=== PATIENT | female | born 1955 | race Caucasian/White ===

== ENCOUNTER → 2017-03-07 | Outpatient (CLI) | payer BC ==
[~2017-03-07] MED LIST: CELEBREX 200MG200 MG PO; COREG 25MG25 MG/TAB PO; COUMADIN4 MG PO; FOLIC ACID 40400 MCG PO; FOLIC ACID0.4 MG PO; IRON324 M1 PO; MOBIC 7.5MG7.5 MG PO; ROXICODONE 55 MG/TAB PO; THERAPEUTIC VIT1 CAP PO; ULTRAM 50MG TAB50 MG PO; VITAMIN C500 MG PO
== END ==
LOC: COL.VAS 09:46
DX: I34.1 Nonrheumatic mitral (valve) prolapse (principal)

== ENCOUNTER → 2017-09-12 | Outpatient (CLI) | payer BC | LOC: COL.RAD 10:14 | DX: N95.0 Postmenopausal bleeding (principal) ==

== ENCOUNTER 2017-11-08 06:52 | Day surgery (SDC) | payer BC ==
[2017-11-08] VITALS (13 sets, daily range): BP systolic 97–131; BP diastolic 40–79; PULSE 61–67; TEMP 98.1
[~2017-11-08] VITALS: Ht 151.1 cm; Wt 113.1 kg
[2017-11-08 07:19] LABS: HEMOGLOBIN 11.7 g/dl (12.5-16.0); MEAN CELL VOLUME 90 fl (80.0-100.0); MEAN CORPUSCULAR HEMOGLOBIN 31 pg (27.0-31.0); MEAN CORPUSCULAR HGB CONC 34 g/dl (33.0-37.0); MEAN PLATELET VOLUME 10.4 fl (7.4-10.4); PLATELET COUNT 201 K/mm3 (130-400); RED BLOOD COUNT 3.82 M/mm3 (4.10-5.30); REDCELL DISTRIBUTION WIDTH-CV 14.1 % (11.5-14.5)
[2017-11-08 07:24] LABS: HEMATOCRIT 34.5 % (37.0-47.0)
[2017-11-08 07:26] LABS: PROTHROMBIN TIME 11.2 SECONDS (9.7-12.8)
[2017-11-08 07:28] LABS: CREATININE, serum 0.94 mg/dL (0.52-1.25); POTASSIUM 4.6 mmol/L (3.4-5.0)
[2017-11-08] MEDS ORDERED: LIPITOR 10MG10 MG PO (08:06)
[2017-11-08] MEDS ORDERED: PRINIVIL20 MG PO (08:07)
[2017-11-08] MEDS ORDERED: GLUCOPHAGE XR500 M1 PO (08:08)
[2017-11-08] MEDS ORDERED: MOBIC 7.5MG7.5 MG PO (08:08)
[2017-11-08] MEDS ORDERED: TYLENOL 500MG500 MG PO (08:09)
== END 2017-11-08 14:49 | disposition home or self-care (01) ==
LOC: COL.CAR 06:52
PROVIDERS: Internal Medicine Cardiovascular Disease
DX: R94.39 Abnormal result of other cardiovascular function study (principal); R06.02 Shortness of breath; G47.33 Obstructive sleep apnea (adult) (pediatric); I10 Essential (primary) hypertension; M79.89 Other specified soft tissue disorders
CPT/HCPCS: J2250; J3010; Q9967

== ENCOUNTER → 2018-04-17 | Outpatient (CLI) | payer BC ==
[~2018-04-17] MED LIST changes: +GLUCOPHAGE XR500 M1 PO; +LIPITOR 10MG10 MG PO; +PRINIVIL20 MG PO; +TYLENOL 500MG500 MG PO
== END ==
LOC: MC.RAD 10:40
DX: Z12.31 Encounter for screening mammogram for malignant neoplasm of breast (principal)

== ENCOUNTER → 2018-09-27 | Outpatient (CLI) | payer BC | LOC: COL.RAD 08:40 | DX: K44.9 Diaphragmatic hernia without obstruction or gangrene (principal); K22.8 Other specified diseases of esophagus ==

== ENCOUNTER → 2019-05-01 | Outpatient (CLI) | payer BC | LOC: MC.RAD 13:53 | DX: Z12.31 Encounter for screening mammogram for malignant neoplasm of breast (principal) ==

== ENCOUNTER 2019-05-30 09:30 | Outpatient (RCR) | payer BC | END 2019-08-12 | disposition home or self-care (01) | LOC: WSPT | DX: M25.561 Pain in right knee (principal); Z98.890 Other specified postprocedural states; Z96.641 Presence of right artificial hip joint ==

== ENCOUNTER → 2020-05-07 | Outpatient (CLI) | payer MEDICARE, BC | LOC: MC.RAD 10:45 | DX: Z12.31 Encounter for screening mammogram for malignant neoplasm of breast (principal) ==

== ENCOUNTER → 2020-11-24 | Outpatient (CLI) | payer MEDICARE, BC ==
[~2020-11-24] MED LIST changes: +ATIVAN 1MG T1 MG/TAB PO; +B-121000 MCG PO; +CALCIUM 600 PLU1 TAB PO; +LIQUIFILM TEARS15 ML OU; +NORCO 325 MG-7.1 TAB PO; +NYSTATIN100000 U/1 TOP; +PROTONIX 40MG T40 MG PO; +ROXANOL 20MG20 MG/ML PO; -THERAPEUTIC VIT1 CAP PO; +TRANSDERM-0.5 MG/21 TD; +ZOFRAN 4MG T4 MG/TAB PO; +ZOFRAN ODT4 MG PO
== END ==
LOC: COL.RAD 07:45
DX: D72.829 Elevated white blood cell count, unspecified (principal); M47.816 Spondylosis without myelopathy or radiculopathy, lumbar region; R63.4 Abnormal weight loss; N63.31 Unspecified lump in axillary tail of the right breast; J84.10 Pulmonary fibrosis, unspecified; R16.0 Hepatomegaly, not elsewhere classified; R59.0 Localized enlarged lymph nodes; N20.0 Calculus of kidney; R19.09 Other intra-abdominal and pelvic swelling, mass and lump; Z90.710 Acquired absence of both cervix and uterus; Z85.42 Personal history of malignant neoplasm of other parts of uterus
CPT/HCPCS: Q9967

== ENCOUNTER 2020-12-11 17:48 | Inpatient (IN) | payer MEDICARE, BC ==
[~2020-12-11] VITALS: Ht 149.9 cm; Wt 109.5 kg
[~2020-12-11 17:48] MED LIST changes: -ATIVAN 1MG T1 MG/TAB PO; -LIQUIFILM TEARS15 ML OU; -NORCO 325 MG-7.1 TAB PO; -NYSTATIN100000 U/1 TOP; -PROTONIX 40MG T40 MG PO; -ROXANOL 20MG20 MG/ML PO; -TRANSDERM-0.5 MG/21 TD; -ZOFRAN 4MG T4 MG/TAB PO; -ZOFRAN ODT4 MG PO
[2020-12-11 18:06] LABS: HEMATOCRIT 40.6 % (37.0-47.0); HEMOGLOBIN 12.5 g/dl (12.5-16.0); MEAN CELL VOLUME 93 fl (80.0-100.0); MEAN CORPUSCULAR HEMOGLOBIN 29 pg (27.0-31.0); MEAN CORPUSCULAR HGB CONC 31 g/dl (33.0-37.0); MEAN PLATELET VOLUME 10.2 fl (7.4-10.4); PLATELET COUNT 282 K/mm3 (130-400); RED BLOOD COUNT 4.36 M/mm3 (4.10-5.30); REDCELL DISTRIBUTION WIDTH-CV 19.3 % (11.5-14.5)
[2020-12-11 18:16] LABS: ALBUMIN 3.1 gm/dL (3.5-5.0); BILIRUBIN,TOTAL 1.1 mg/dL (0.0-1.0); CALCIUM 9.6 mg/dL (8.4-10.2); CREATININE, serum 0.8 (0.52-1.25); POTASSIUM 5.1 mmol/L (3.4-5.0); TOTAL PROTEIN 7.4 gm/dL (6.4-8.2)
[2020-12-11 18:32] LABS: C-REACTIVE PROTEIN 15.4 mg/dL (0.0-0.9)
[2020-12-11 19:05] LABS: BAND 11 % (0-10); LYMPHOCYTE 8 % (20.0-51.0); NEUTROPHILS 81 % (42.0-75.2)
[2020-12-11 19:06] LABS: ANISOCYTOSIS 3+; PLATELET ESTIMATE NORMAL (NORMAL); POLYCHROMASIA 1+
[2020-12-11 19:07] LABS: OVALOCYTES 1+
[2020-12-12] VITALS (247 sets, daily range): BP systolic 70–143; BP diastolic 36–90; PULSE 62–109; TEMP 97.5–98.5; O2SAT 94–99
--- NOTE | 2020-12-12 00:43 | NUR ---
Patient arrived medical floor room 356 via hospital bed around 2300 from ER. Patient alert and oriented. Patient denies any pain, SOB/dyspnea, N/V, headache, dizziness, or diarrhea. Patient reports feeling very weak and may need walker for ambulation. Walker and bed-side commode provided. Assisted patient to use bed-side commode at this time. 1 person assist needed for transfer and ambulation. Oriented patient to the room. NS currently running at 125ml/hr. Call light within reach. Will continue to monitor.
[2020-12-12] MEDS ORDERED: NORCO 325 MG-7.1 TAB PO (02:38)
[2020-12-12] MEDS ORDERED: ZOFRAN 4MG T4 MG/TAB PO (02:39)
[2020-12-12] MEDS ORDERED: NYSTATIN100000 U/1 TOP (02:39)
[2020-12-12] MEDS ORDERED: PROTONIX 40MG T40 MG PO (02:39)
[2020-12-12 03:41] LABS: COLLECTION METHOD CLEAN CATCH
[2020-12-12 03:52] LABS: MUCOUS Present /lpf; PH 5 (5-8); SQUAMOUS EPITHELIAL 0-2 /hpf; URINE APPEARANCE Clear; URINE BACTERIA None Seen /hpf; URINE BILIRUBIN Negative (NEGATIVE); URINE BLOOD 2+ (NEGATIVE); URINE COLOR Yellow; URINE GLUCOSE Negative (NEGATIVE); URINE KETONE Trace (NEGATIVE); URINE LEUKOCYTE ESTERASE Negative (NEGATIVE); URINE NITRATE Negative (NEGATIVE); URINE PROTEIN(semi-quant) Negative (NEGATIVE); URINE RBC >50 /hpf; URINE UROBILINOGEN Negative (NEGATIVE)
--- NOTE | 2020-12-12 06:07 | NUR ---
Patient awake most of the night. Patient reports intermittent nausea but denies need for nausea medicine. No vomiting noted. PRN pain meds given for c/o lower back pain. Assisted patient to use bedside commode Q 1-2hrs. Call light within reach. Will continue to monitor.
[2020-12-12 08:33] LABS: MEAN CELL VOLUME 94 fl (80.0-100.0); MEAN CORPUSCULAR HGB CONC 31 g/dl (33.0-37.0); MEAN PLATELET VOLUME 10.5 fl (7.4-10.4); PLATELET COUNT 231 K/mm3 (130-400); RED BLOOD COUNT 3.42 M/mm3 (4.10-5.30); REDCELL DISTRIBUTION WIDTH-CV 19.4 % (11.5-14.5)
[2020-12-12 08:38] LABS: INR 1.4 (0.8-3.0); PROTHROMBIN TIME 15.3 SECONDS (9.7-12.8)
[2020-12-12 08:46] LABS: CALCIUM 8.5 mg/dL (8.4-10.2); CREATININE, serum 0.72 (0.52-1.25); HEMATOCRIT 32.3 % (37.0-47.0); HEMOGLOBIN 9.9 g/dl (12.5-16.0); MEAN CORPUSCULAR HEMOGLOBIN 29 pg (27.0-31.0); POTASSIUM 4.4 mmol/L (3.4-5.0)
--- NOTE | 2020-12-12 08:49 | NUR ---
Patient laying in bed when this RN entered the room. IV pump was going off and fluids were completed. While this RN was completing the shift assessment, PT came in to work with the patient. This RN stayed in the room to see how the patient did with mobility. Patient did have difficulties sitting up on her own, but did very well standing up and ambulating w/ the assistance of PT. Patient had no c/o pain at this time.
[2020-12-12 11:11] LABS: ANISOCYTOSIS 2+; BAND 4 % (0-10); HYPOCHROMIA 3+; LYMPHOCYTE 6 % (20.0-51.0); NEUTROPHILS 84 % (42.0-75.2)
[2020-12-12 11:12] LABS: PLATELET ESTIMATE NORMAL (NORMAL); TOXIC GRANULATION PRESENT
--- NOTE | 2020-12-12 12:11 | NUR ---
Sw met with the pt who stated her preference to return home once medically stable. The pt is independent on all ADLS, but does use a cane,walker and CPAP. The pt is a and her next of kin,SWATHI, is her son, Raisa ([phone]). but her person to contact is Sharmin, sister( [phone]). Her PCP is Francis Levine and gets her medications from [facility]. The pt informed Beth that she has a meeting with ever Suazo at 1pm. The pt has cancer and she informed the Sw that the dr thinks she has a month left to live. So she is not sure about hospice at this time. Her son is coming up tonight and they will chat about care of plan. Pallitive consult called. The pt would like me to make a referral to [facility] for PT. No other needs stated at this time. Sw to await furthe recommendations and follow up as needed. D/C: Home vs hospice
--- NOTE | 2020-12-12 13:14 | NUR ---
Interior Wall Assembler offered prayer and support with patient.
--- NOTE | 2020-12-12 13:25 | NUR ---
This RN was notified by the patient's assigned PCT that her blood pressure was low, 81/46. BP was retaken and it was 70/36. This RN did a manual BP and got 62/44. Provider was notified and a 500mL bolus was ordered. BP has been being taken every 10minutes and continues to remain low; 73/31, 73/34, 72/35, 81/39, 70/36, 65/34, and 79/31. Provider was notified that pressures are not coming up after the first bolus of 500mL and a 2nd bolus was ordered and initiated. Patient will remain on 10minutes BPs.
--- NOTE | 2020-12-12 14:58 | NUR ---
PT TRANSFERED DOWN FROM THE MEDICAL FLOOR FOR HYPOTENTION. PT TRANSFERED TO BED. PT PLACE ON MONITORS. PT SHOWING SR IN THE 60'S. PT IS AXOX4 BUT SLEEPY. BP IN THE 80'S. BOLUS RUNNING. SPOKE WITH WHO IS ON THE WAY IN FOR CENTRAL LINE PLACEMENT. PT ORIENTED TO ROOM AND FLOOR. PT INSTRUCTED TO CALL WITH ALL NEEDS AND NOT TO GET OUT OF BED. WILL CONTINUE TO [facility].
--- NOTE | 2020-12-12 20:00 | NUR ---
Assessment complete and charted. Patient denies needs at this time. Call light in reach.
[2020-12-13] VITALS (876 sets, daily range): BP systolic 84–125; BP diastolic 56–76; PULSE 68–98; TEMP 97.8–98.6; O2SAT 69–100
--- NOTE | 2020-12-13 06:36 | NUR ---
Patient remained on levophed during night. Titrated as needed. Otherwise uneventful night. Resting in bed this AM. Call light in reach.
[2020-12-13 07:16] LABS: CALCIUM 8.2 mg/dL (8.4-10.2); CREATININE, serum 0.84 (0.52-1.25); HEMOGLOBIN 10.3 g/dl (12.5-16.0); MEAN CELL VOLUME 96 fl (80.0-100.0); MEAN CORPUSCULAR HEMOGLOBIN 29 pg (27.0-31.0); MEAN CORPUSCULAR HGB CONC 30 g/dl (33.0-37.0); MEAN PLATELET VOLUME 10.8 fl (7.4-10.4); PLATELET COUNT 266 K/mm3 (130-400); POTASSIUM 4.3 mmol/L (3.4-5.0); RED BLOOD COUNT 3.58 M/mm3 (4.10-5.30); REDCELL DISTRIBUTION WIDTH-CV 19.8 % (11.5-14.5)
[2020-12-13 07:20] LABS: HEMATOCRIT 34.4 % (37.0-47.0)
--- NOTE | 2020-12-13 07:24 | NUR ---
Report given to RADHA Javed
[2020-12-13 10:05] LABS: ANISOCYTOSIS 2+; BAND 1 % (0-10); EOSINOPHIL 0 % (0-4); HYPOCHROMIA 3+; LYMPHOCYTE 4 % (20.0-51.0); NEUTROPHILS 87 % (42.0-75.2); PLATELET ESTIMATE NORMAL (NORMAL); TOXIC GRANULATION PRESENT
[2020-12-14] VITALS (563 sets, daily range): BP systolic 98–134; BP diastolic 46–71; PULSE 76–103; TEMP 97.8–98.4; O2SAT 92–100
[2020-12-14 05:22] LABS: BASO # 0.1 (0.0-0.2); BASO % 0.1 % (0.0-2.0); EOS # 0.1 (0.0-0.7); EOS % 0.4 % (0-4.0); GRAN # 33.7 (1.4-6.5); GRAN % 89.4 % (42.2-75.2); LYMPH # 1.6 (1.2-3.4); LYMPH % 4.3 % (20.0-51.0); MEAN CELL VOLUME 95 fl (80.0-100.0); MEAN CORPUSCULAR HEMOGLOBIN 30 pg (27.0-31.0); MEAN CORPUSCULAR HGB CONC 31 g/dl (33.0-37.0); MEAN PLATELET VOLUME 9.8 fl (7.4-10.4); MONO # 1.2 (0.1-0.6); MONO % 3.2 % (1.7-9.3); PLATELET COUNT 216 K/mm3 (130-400); RED BLOOD COUNT 3.36 M/mm3 (4.10-5.30); REDCELL DISTRIBUTION WIDTH-CV 19.8 % (11.5-14.5)
[2020-12-14 05:32] LABS: HEMATOCRIT 31.9 % (37.0-47.0)
[2020-12-14 05:33] LABS: ALBUMIN 2.3 gm/dL (3.5-5.0); BILIRUBIN,TOTAL 1.1 mg/dL (0.0-1.0); CALCIUM 7.8 mg/dL (8.4-10.2); CREATININE, serum 0.73 (0.52-1.25); MAGNESIUM 1.5 mg/dL (1.6-2.3); POTASSIUM 3.8 mmol/L (3.4-5.0); TOTAL PROTEIN 5.7 gm/dL (6.4-8.2)
--- NOTE | 2020-12-14 07:30 | NUR ---
Resting in bed; alert and oriented and in no distress. Assisted with [facility]isha-care and placed a new purwick external catheter. Denies any needs or concerns at this time. Call light left within reach; will continue to monitor.
--- NOTE | 2020-12-14 10:57 | NUR ---
I met with patient by herself this morning and reviewed potential hospice locations. She reports that she does not have anyone who could care for her at home so that would not be an option. She reports that she has heard good things about hosp[facility] and would prefer this over senior living. [facility] and spoke with Addison who advises that they do have openings. I faxed over a referral and requested a hospital visit from hospice staff which they tremayne let me know about. Later this morning, son Jon arrived and asked that I request a suite at the [facility]. He will return for the visit once it is scheduled and did hear me request a suite which is available. Kathia mahmood provided with explanation.
--- NOTE | 2020-12-14 14:21 | NUR ---
Hospice manufacturing sales representative, Mary, came and met with both Olivia and Jon at bedside. Olivia and Jon are both in agreement that they want to move forward to the [facility] as soon as possible. Addison garcia [facility] has notified me that they can admit tomorrow morning around 10am. I have notified Cindy, case aide, Kenyetta, primary nurse, and Dr Yuan of this plan.
--- NOTE | 2020-12-14 16:15 | NUR ---
Resting in bed; VS stable. No concerns at this time. Call light left within reach.
--- NOTE | 2020-12-14 18:00 | NUR ---
Pharmacist notified of critical vancomycin trough.
--- NOTE | 2020-12-14 19:00 | NUR ---
Received report from RADHA Kumari.
--- NOTE | 2020-12-14 21:00 | NUR ---
Patient resting quietly in bed. Reports some back pain unresponsive to tramadol. PRN morphine administered. All vitals within normal limits. No further needs noted.
[2020-12-15] VITALS (96 sets, daily range): BP systolic 109–116; BP diastolic 55–65; PULSE 75–81; TEMP 97.8–98; O2SAT 94–98
--- NOTE | 2020-12-15 07:00 | NUR ---
PT RESTING IN BED. VSS. NS RUNNING. WILL CONTINUE TO [facility].
[2020-12-15 07:22] LABS: HEMOGLOBIN 10.1 g/dl (12.5-16.0); MEAN CELL VOLUME 96 fl (80.0-100.0); MEAN CORPUSCULAR HEMOGLOBIN 30 pg (27.0-31.0); MEAN CORPUSCULAR HGB CONC 31 g/dl (33.0-37.0); MEAN PLATELET VOLUME 10.5 fl (7.4-10.4); PLATELET COUNT 234 K/mm3 (130-400); RED BLOOD COUNT 3.38 M/mm3 (4.10-5.30); REDCELL DISTRIBUTION WIDTH-CV 20.4 % (11.5-14.5)
[2020-12-15 07:26] LABS: HEMATOCRIT 32.4 % (37.0-47.0)
[2020-12-15 07:29] LABS: POTASSIUM 4.2 mmol/L (3.4-5.0)
--- NOTE | 2020-12-15 07:35 | NUR ---
Report given to RADHA Cabrera.
[2020-12-15 07:38] LABS: CALCIUM 7.9 mg/dL (8.4-10.2); CREATININE, serum 0.88 (0.52-1.25)
[2020-12-15 08:23] LABS: ANISOCYTOSIS 2+; BAND 22 % (0-10); BURR CELLS 1+; LYMPHOCYTE 2 % (20.0-51.0); OVALOCYTES 2+; PLATELET ESTIMATE NORMAL (NORMAL); TEAR DROP CELLS 1+
[2020-12-15 08:24] LABS: NEUTROPHILS 75 % (42.0-75.2)
[2020-12-15] MEDS ORDERED: LIQUIFILM TEARS15 ML OU (09:25)
[2020-12-15] MEDS ORDERED: TRANSDERM-0.5 MG/21 TD (09:25)
[2020-12-15] MEDS ORDERED: ROXANOL 20MG20 MG/ML PO (09:25)
[2020-12-15] MEDS ORDERED: ATIVAN 1MG T1 MG/TAB PO (09:25)
[2020-12-15] MEDS ORDERED: ZOFRAN ODT4 MG PO (09:25)
--- NOTE | 2020-12-15 10:22 | NUR ---
PT TRANSFERING TO [facility] BY EMS. REPORT CALLED TO SENDY AT [facility]. ALL QUESTIONS ANSWERED. CENTRAL LINE REMOVED AND PERIPHERAL IV DISCONTINUED. PT'S BELONGINGS PACKED. PT TRANSFERED TO [facility]. REPORT GIVEN TO EMS. ALL PAPERWORK GIVEN TO EMS.
== END 2020-12-15 10:24 | disposition hospice, inpatient (51) | DRG 436 ==
LOC: COL.ER 17:48 → MEDICAL 19:16 → COL.ER 19:16 → ICU 12-12 14:19 → MEDICAL 12-12 14:19 → ICU 12-15 10:24
PROVIDERS: Family Medicine; Internal Medicine; Nurse Practitioner Family; ADMIT Student in an Organized Health Care Education/Training Program
PROC: 06H033Z Insertion of Infusion Device into Inferior Vena Cava, Percutaneous Approach (ICD-10-PCS; principal; 2020-12-12)
DX: C78.7 Secondary malignant neoplasm of liver and intrahepatic bile duct (principal); C77.2 Secondary and unspecified malignant neoplasm of intra-abdominal lymph nodes; C79.51 Secondary malignant neoplasm of bone; E87.1 Hypo-osmolality and hyponatremia; Z68.41 Body mass index [BMI] 40.0-44.9, adult; E87.2 Acidosis; R65.10 Systemic inflammatory response syndrome (SIRS) of non-infectious origin without acute organ dysfunction; Z20.822 Contact with and (suspected) exposure to COVID-19; Z66 Do not resuscitate; Z51.5 Encounter for palliative care; D72.823 Leukemoid reaction; I10 Essential (primary) hypertension; I95.9 Hypotension, unspecified; K76.89 Other specified diseases of liver; D72.829 Elevated white blood cell count, unspecified; M85.80 Other specified disorders of bone density and structure, unspecified site; E83.52 Hypercalcemia; E11.9 Type 2 diabetes mellitus without complications; E66.01 Morbid (severe) obesity due to excess calories; E87.5 Hyperkalemia; R53.81 Other malaise; E86.0 Dehydration; E78.5 Hyperlipidemia, unspecified; Z85.42 Personal history of malignant neoplasm of other parts of uterus; Z90.710 Acquired absence of both cervix and uterus; Z92.3 Personal history of irradiation; Z96.641 Presence of right artificial hip joint
CPT/HCPCS: 99223-AI; 99233-AI; 99239; J1650; J2270; J2405; J2543; J2920; J3370; J3475; J7030; J7040; J7050; J7060; J7120; Q9967